=== PATIENT | female | born 1930 | race Two or more races ===

== ENCOUNTER 2020-05-14 13:01 | Inpatient (IN) | payer MEDICARE, OTHER ==
[~2020-05-14] VITALS: Ht 167.6 cm; Wt 53.5 kg
--- NOTE | 2020-05-14 13:14 | NUR ---
BIBRA 83 FROM HOME, C/O L HIP PAIN S/P TRIPPED AND FELL YESTERDAY. FENTANYL 50MCG GIVEN BY EMS PEST TECHNICIAN. TO ER BED 11, HOOKED TO MONITOR, CHANGED TO HOSP GOWN, WARM BLANKET PROVIDED. PATIENT AAO x 2, BREATHING EVEN AND UNLABORED. AWAITING MD BACA.
[2020-05-14 13:20] LABS: BASOPHILS % (AUTO) 0.2 % (0.0-2.0); EOSINOPHILS % (AUTO) 0.2 % (0.0-6.0); HEMATOCRIT 34 % (33-45); HEMOGLOBIN 11.1 g/dL (11.5-14.8); LYMPHOCYTES # (AUTO) 1.7 /CMM (0.8-4.8); LYMPHOCYTES % (AUTO) 13.6 % (20.0-44.0); MEAN CORPUSCULAR HGB CONC 33 g/dl (31.0-36.0); MEAN CORPUSCULAR VOLUME 92 fL (82-100); MONOCYTES # (AUTO) 0.8 /CMM (0.1-1.30); MONOCYTES % (AUTO) 6.7 % (2.0-12.0); NEUTROPHILS # (AUTO) 9.8 /CMM (1.8-8.9); NEUTROPHILS % (AUTO) 79.3 % (43.0-81.0); PLATELET COUNT (AUTO) 226 /CMM (150-450); RED BLOOD CELL COUNT(AUTO) 3.67 MIL/uL (4.0-5.2); WHITE BLOOD COUNT (AUTO) 12.4 K/uL (4.3-11.0)
[2020-05-14] MEDS ORDERED: DONE5TAB34 PO (13:20)
[2020-05-14] MEDS ORDERED: METO25TA6 PO (13:20)
[2020-05-14] MEDS ORDERED: ALEN70TA6 PO (13:20)
[2020-05-14] MEDS ORDERED: IV NS 0.9% 500 ML BAG IV ONE (13:30)
[2020-05-14 13:33] LABS: ALBUMIN 3.1 g/dL (3.4-5.0); BILIRUBIN,DIRECT 0.1 mg/dL (0.0-0.2); BILIRUBIN,TOTAL 0.5 mg/dL (0.2-1.0); CALCIUM, SERUM 8.6 mg/dL (8.5-10.1); CREATININE 1.2 mg/dL (0.6-1.3); POTASSIUM 4.4 mmol/L (3.5-5.1); TOTAL PROTEIN, SERUM 7.8 g/dL (6.4-8.2)
--- NOTE | 2020-05-14 15:17 | NUR ---
LAB CALLED COVID (-) NEG.
[2020-05-14] MEDS ORDERED: Z GUARD REMEDY 2 OZ OINT TP PRN (15:30)
[2020-05-14] MEDS ORDERED: MAGNESIUM HYDROXIDE 30 ML UDC PO PRN (15:30)
[2020-05-14] MEDS ORDERED: ONDANSETRON HCL/PF 4 MG/2 ML VIAL IVP PRN (15:30)
[2020-05-14] MEDS ORDERED: ZOLPIDEM TARTRATE 5 MG TABLET PO PRN (15:30)
[2020-05-14] MEDS ORDERED: MAG HYDROX/AL HYDROX/SIMETH 30 ML UDC PO PRN (15:30)
[2020-05-14] MEDS ORDERED: ACETAMINOPHEN 325 MG TABLET PO PRN (15:30)
[2020-05-14] MEDS ORDERED: HYDROCODONE/APAP 5/325MG 1 EACH TABLET PO PRN (15:30)
--- NOTE | 2020-05-14 15:54 | NUR ---
REPORT GIVEN TO MONIQUE DIAMOND OF [facility] UNIT
--- NOTE | 2020-05-14 15:55 | NUR ---
CONTROL MANAGER NOTES RECEIVED REPORT FROM ER NURSE. WAITING ON PATIENT ARRIVAL TO THE UNIT
--- NOTE | 2020-05-14 15:56 | NUR ---
SPOKE TO REJI RAMIREZ [facility]
--- NOTE | 2020-05-14 16:00 | NUR ---
AUTH TO ADMIT GIVEN TO ADMITTING DEPT
[2020-05-14 17:00] VITALS: BP 158/90
[2020-05-14] MEDS: METOPROLOL TARTRATE 25 MG TABLET PO SCH (17:53)
--- NOTE | 2020-05-14 18:00 | NUR ---
MS RN NOTES PATIENT REFUSSES DVT PUMP APPLICATION AT THIS TIME.
--- NOTE | 2020-05-14 19:03 | NUR ---
MS RN CLOSING NOTES PATIENT CURRENTLY IN BED, A/O X1, CONFUSED. PATIENT ON ROOM AIR; BREATHING IS EVEN AND UNLABORED, NO SOB PRESENT. PAIN WITH MOVEMENT BUT DIDN'T REQUEST PAIN MEDICATION. IV ACCESS G #18 ON RAC. SAFETY PRECAUTIONS IN PLACE; BED IN LOW POSITION AND LOCKED, RAILS UP X2, CALL LIGHT WITHIN REACH. FULL ADMISSION DONE. WILL ENDORSE TO DOMESTIC VIOLENCE [employer]VOCATE NURSE.
--- NOTE | 2020-05-14 19:26 | NUR ---
MS RN OPEN NOTES PATIENT IS LAYING IN BED. A/O X1. ON RA, NO SOB/ ACUTE RESPIRATORY DISTRESS NOTED. BED IS IN LOWEST LOCKED POSITION WITH SIDE RAILS UP X3, SEMI FOWLERS. CALL LIGHT IS WITHIN REACH. WILL CONTINUE TO MONITOR.
[2020-05-14 20:59] VITALS: BP 117/60
--- NOTE | 2020-05-15 06:05 | NUR ---
MS RN NOTES TELEPHONE CONSENT PROVIDED BY BELLA MENDOZA (DAUGHTER). CONSENT WITNESSED BY DARA HUMPHREYS.
--- NOTE | 2020-05-15 06:29 | NUR ---
MS RN CLOSE NOTES PATIENT IS LAYING IN BED. A/O X1, CONFUSED. ON RA, NO SOB/ ACUTE RESPIRATORY DISTRESS NOTED. HUMMEL CATHETER IN PLACE. IV IN R AC#18G IS PATENT AND INTACT. BED IS IN LOWEST LOCKED POSITION WITH SIDE RAILS UP X3, SEMI FOWLERS. CALL LIGHT IS WITHIN REACH. WILL ENDORSE TO AM NURSE.
[2020-05-15 06:39] LABS: BASOPHILS % (AUTO) 0.3 % (0.0-2.0); EOSINOPHILS % (AUTO) 1.2 % (0.0-6.0); HEMATOCRIT 37 % (33-45); HEMOGLOBIN 11.7 g/dL (11.5-14.8); MEAN CORPUSCULAR HGB CONC 32 g/dl (31.0-36.0); MEAN CORPUSCULAR VOLUME 98 fL (82-100); MONOCYTES # (AUTO) 0.7 /CMM (0.1-1.30); MONOCYTES % (AUTO) 6.7 % (2.0-12.0); NEUTROPHILS # (AUTO) 7.7 /CMM (1.8-8.9); NEUTROPHILS % (AUTO) 72.8 % (43.0-81.0); PLATELET COUNT (AUTO) 209 /CMM (150-450); RED BLOOD CELL COUNT(AUTO) 3.76 MIL/uL (4.0-5.2); WHITE BLOOD COUNT (AUTO) 10.6 K/uL (4.3-11.0)
[2020-05-15 06:42] LABS: CALCIUM, SERUM 8.7 mg/dL (8.5-10.1); CREATININE 0.9 mg/dL (0.6-1.3); MAGNESIUM 2.4 mg/dL (1.8-2.4); PHOSPHORUS 3.3 mg/dL (2.5-4.9)
--- NOTE | 2020-05-15 07:30 | NUR ---
RN Opening note Received patient AO x 1, confuse, able to responds all stimuli. Skin is warm to touch, keep clean/dry, intact IV site on right AC 18g saline lock. Respiratory even and unlabored in room air, no distress observed. Keep bed in locked with elevated HOB for ensure airway and aspiration precaution, call light within reach, will continue to monitor.
[2020-05-15] MEDS: DONEPEZIL 5 MG TABLET PO SCH (08:42)
[2020-05-15] MEDS: METOPROLOL TARTRATE 25 MG TABLET PO SCH ×2 (08:51→17:00)
[2020-05-15 10:01] LABS: IRON, SERUM 22 ug/dl (50-175); TOTAL IRON BINDING CAPACITY 248 ug/dl (250-450)
[2020-05-15 10:03] LABS: FERRITIN 191 ng/mL (8-388); THYROID STIMULATING HORMONE 2.159 uIU/mL (0.358-3.74)
[2020-05-15] MEDS ORDERED: FENTANYL PF 250MCG/5ML AMPUL ONE (14:44)
[2020-05-15] MEDS ORDERED: MIDAZOLAM HCL 2 MG/2ML VIAL ONE (14:44)
[2020-05-15] MEDS ORDERED: ROCURONIUM BROMIDE 50 MG/5 ML ONE (14:45)
[2020-05-15] MEDS ORDERED: BACITRACIN 50000 UNITS/VIAL ONE (15:14)
[2020-05-15] MEDS ORDERED: BUPIVACAINE 0.5 % PF 150 MG/30 ML VIAL ONE (15:14)
[2020-05-15] MEDS ORDERED: HYDROMORPHONE INJ 2 MG/ML DISP.SYRIN ONE (15:50)
[2020-05-15 16:00] VITALS: BP 105/54
--- NOTE | 2020-05-15 18:11 | NUR ---
RN Closing note Patient back from surgery for left hip fx, v/s:bp-137/63, p-108, r-15,t-97.0, X3iwb-47% with oxygen at 2LPM, no distress observed. Resumed regular diet, and placed all orders except meds order. Skin is warm to touch, keep clean/dry, intact Sx site, no active bleeding observed. Kept bed in locked in with elevated HOB, for ensure airway and aspiration precaution. Call light within reach, will endorse night nurse.
[2020-05-15 20:00] VITALS: BP 91/55
--- NOTE | 2020-05-15 20:25 | NUR ---
MS/RN OPENING NOTE Patient asleep in bed. A/O x1, tajik speaking only. Skin is warm, pink, dry, appropriate for ethnicity. Abdomen soft, round, non-tender. Bowel sounds hypoactive. Nj catheter in place, draining clear, yellow, urine, no sediment. Breath sounds, even, clear, unlabored. No acute distress or SOB noted. HOB elevated 45 degrees. Bed in low position, wheels locked, side rails up x2, call light within reach.
[2020-05-15 20:55] VITALS: BP 91/55
--- NOTE | 2020-05-15 22:51 | NUR ---
MS/RN CLOSING NOTE Patient asleep in bed. A/O x1, French speaking only. Nj catheter in place, draining clear, yellow, urine, no sediment. Breath sounds, even, clear, unlabored. No acute distress or SOB noted. HOB elevated 45 degrees. Nasal cannula 2 l/min. Bed in low position, wheels locked, side rails up x2, call light within reach. Will endorse to Meli for continuation of care.
[2020-05-15] MEDS: IV LR 1000 ML 1,000 ML IV PRN (23:21)
--- NOTE | 2020-05-15 23:48 | NUR ---
MS RN NOTES RECEIVED REPORT FROM DARA WILDER. PATIENT APPEARS STABLE, NO SIGNS OF ACUTE DISTRESS. WILL CONTINUE TO MONITOR THROUGHOUT THE NIGHT.
--- NOTE | 2020-05-16 06:52 | NUR ---
MS RN CLOSING NOTES PATIENT IN BED RESTING ON 2L OF O2 WITH BREATHING EVEN AND UNLABORED, NO SOB NOTED. NO SIGNS OF ACUTE DISTRESS. NO COMPLAINTS OF PAIN OR DISCOMFORT- NO FACIAL GRIMACING NOTED. HUMMEL IN PLACE NOTED AND DRAINING CLEAR YELLOW URINE. IV LOCATED ON R AC #18 RUNNING NS @ 75 ML/HR. SAFETY PRECAUTIONS IN PLACE WITH BED IN LOWEST POSITION, CALL LIGHT WITHIN REACH, BREAKS ON, SIDE RAILS UP . ALL NEEDS ATTENDED TO. PATIENT KEPT CLEAN AND DRY THROUGHOUT THE NIGHT. WILL ENDORSE TO ONCOMING SHIFT ABOUT LEONARDO.
--- NOTE | 2020-05-16 07:30 | NUR ---
RN MED/SURG OPENING NOTES Received patient alert and oriented x 1. Mohawk speaking and with episodes of confusion. Respiration is even and easy with no shortness of breath. Patient appears stable with no complaints of pain or any discomfort. Will continue to monitor. With #24 IV on left forearm, intact and infusing well.
[2020-05-16 08:00] VITALS: BP 155/73
[2020-05-16] MEDS: DONEPEZIL 5 MG TABLET PO SCH (09:05)
[2020-05-16] MEDS: METOPROLOL TARTRATE 25 MG TABLET PO SCH ×2 (09:06→16:44)
--- NOTE | 2020-05-16 14:00 | NUR ---
HOROLOGIST APPRENTICE NOTES Patient remains awake, but with episodes of confusion. All due medications given as ordered. Respiration is even and easy with no SOB. IV site is intact and infusing well. All needs anticipated and attended to. Will continue to monitor.
[2020-05-16] MEDS: SOD FERRIC GLUC 125 MG in IV NS 0.9% 100 ML IV SCH (14:42)
[2020-05-16] MEDS: IV LR 1000 ML 1,000 ML IV PRN (14:55)
[2020-05-16 16:00] VITALS: BP 130/75
--- NOTE | 2020-05-16 19:44 | NUR ---
MS/RN OPENING NOTE Patient awake in bed. A/O x1, confused. Breathing even, clear, unlabored. No signs of acute distress or SOB. On room air. Pulses 2+. Skin warm, pink, dry, appropriate for ethnicity. Generalized bruising throughout body. IV site left forearm 24g running LR @ 75 ml/hr, no signs of infiltration. Bed in low position, wheels locked, side rails up x2, call light within reach.
[2020-05-16 20:00] VITALS: BP 123/72
[2020-05-16] MEDS: ENOXAPARIN SODIUM 40 MG/0.4 ML DISP.SYRIN SQ SCH (20:08)
--- NOTE | 2020-05-16 20:28 | NUR ---
MS/RN NOTE DC vazquez catheter, patient tolerated well. Urinary output 150 ml clear, yellow urine.
[2020-05-16 20:54] VITALS: BP 123/72
[2020-05-17] MEDS: IV LR 1000 ML 1,000 ML IV PRN (01:46)
[2020-05-17 06:20] LABS: *SPE A/G RATIO 0.7 (0.7-1.7); *SPE ALBUMIN 2.8 g/dL (2.9-4.4); *SPE ALPHA-1-GLOBULIN 0.4 g/dL (0.0-0.4); *SPE ALPHA-2-GLOBULIN 0.9 g/dL (0.4-1.0); *SPE BETA GLOBULIN 1.2 g/dL (0.7-1.3); *SPE GLOBULIN, TOTAL 4.2 g/dL (2.2-3.9); *SPE M-SPIKE Not Observed g/dL (Not Observed); *SPEGAMMA GLOBULIN 1.7 g/dL (0.4-1.8)
--- NOTE | 2020-05-17 06:33 | NUR ---
MS/RN CLOSING NOTE Patient asleep in bed, A/O x1, German speaking only. Breathing even, clear, unlabored. No signs of acute distress or SOB. On room air. Skin warm, pink, dry, appropriate for ethnicity. IV site LFA 24g running LR @ 75 ml/hr, no signs of infiltration. Incontinent, urine clear and yellow. No bowel movement this shift. Pulses 2+. Able to move extremities well. Bed in low position, wheels locked, side rails up x2, call light within reach.
--- NOTE | 2020-05-17 07:26 | NUR ---
MS RN OPENING NOTES RECEIVED PT AWAKE IN BED IN NO ACUTE SIGNS OF DISTRESS. HOB ELEVATED. A/OX1. FINNISH SPEAKING, CONFUSED BUT SEEMS COMFORTABLE, NO FACIAL GRIMACES NOTED. ON ROOM AIR, BREATHING EVEN AND UNLABORED. IV ACCESS ON LFA G#24 INTACT AND PATENT, IVF OF LR @ 75ML/HR INFUSING, NO S/S OF REDNESS OR INFILTRATION NOTED. SAFETY PRECAUTIONS IN PLACE; BED LOCKED AND IN IN LOW POSITION, SIDE RAILS X2 AND CALL LIGHT WITHIN REACH. WILL CONT TO MONITOR PT ACCORDINGLY.
[2020-05-17 08:00] VITALS: BP 172/81
[2020-05-17] MEDS: DONEPEZIL 5 MG TABLET PO SCH (08:34)
[2020-05-17 08:35] VITALS: BP 172/81
[2020-05-17] MEDS: METOPROLOL TARTRATE 25 MG TABLET PO SCH (08:35)
[2020-05-17] MEDS: ENOXAPARIN SODIUM 40 MG/0.4 ML DISP.SYRIN SQ SCH (08:35)
[2020-05-17] MEDS ORDERED: ENOX40DI SQ (08:43)
[2020-05-17] MEDS ORDERED: HYDR-3972 PO (08:43)
[2020-05-17] MEDS: SOD FERRIC GLUC 125 MG in IV NS 0.9% 100 ML IV SCH (14:17)
--- NOTE | 2020-05-17 15:30 | NUR ---
RN DISCHARGED NOTES PT DISCHARGED HOME IN STABLE CONDITION. A/O X1. POLISH SPEAKING AND CONFUSED. V/S TAKEN, STABLE AND RECORDED. PHOTOS OF SKIN CONDITION TAKEN AND FILED IN THE CHART. DRESSINGS ON LEFT HIP CHANGED, DRY, CLEAN AND INTACT. IV ACCESS REMOVED, NO BLEEDING NOTED AND APPLIED DRY DRESSING AT SITE. ALL BELONGINGS ACCOUNTED FOR. NAME ARMBAND REMOVED. HEALTH TEACHINGS GIVEN TO FAMILY. EXIT PAPERS AND PT'S BELONGINGS GIVEN TO TRANSPORTATION STAFF. PT LEFT UNIT VIA [email or web address] [email or web address] ACCOMPANIED BY 2 STAFF FROM [facility] [employer] [facility]. MD AND CHARGE NURSE AWARE OF DISCHARGE
== END 2020-05-17 15:25 | disposition home health service (06) | DRG 480 ==
LOC: ER 13:03 → EDBD 13:03 → MED 16:09
PROVIDERS: ADMIT Internal Medicine; ATTEND Internal Medicine
PROC: 0QS706Z Reposition Left Upper Femur with Intramedullary Internal Fixation Device, Open Approach (ICD-10-PCS; principal; 2020-05-15)
DX: S72.142A Displaced intertrochanteric fracture of left femur, initial encounter for closed fracture (principal); N17.0 Acute kidney failure with tubular necrosis; G93.41 Metabolic encephalopathy; W01.0XXA Fall on same level from slipping, tripping and stumbling without subsequent striking against object, initial encounter; G30.9 Alzheimer's disease, unspecified; Y92.89 Other specified places as the place of occurrence of the external cause; F02.80 Dementia in other diseases classified elsewhere, unspecified severity, without behavioral disturbance, psychotic disturbance, mood disturbance, and anxiety; I10 Essential (primary) hypertension; Z79.83 Long term (current) use of bisphosphonates; Z87.828 Personal history of other (healed) physical injury and trauma; D64.9 Anemia, unspecified; Z79.899 Other long term (current) drug therapy; M81.0 Age-related osteoporosis without current pathological fracture
CPT/HCPCS: 36415; 71045-TC; 73020; 73502; 73700-TC; 80048-TC; 80076-TC; 82550-TC; 82728-TC; 83540-TC; 83735-TC; 84100-TC; 84155; 84165; 84439-TC; 84443-TC; 84484-TC; 85025-TC; 85730-TC; 86850-TC; 87081-TC; 93307-TC; 97530-TC; A6209; C1713; G0378; J1170; J1650; J2250; J2916; J3010; J3490; J7030; J7040; J7120